=== PATIENT | male | born 1950 | race Caucasian/White ===

== ENCOUNTER 2017-10-19 10:47 | Outpatient (CLI) | payer OTHER | END 2017-10-19 12:00 | disposition home or self-care (01) | LOC: NUCLEAR 10:47 | DX: M05.69 Rheumatoid arthritis of multiple sites with involvement of other organs and systems (principal); M94.9 Disorder of cartilage, unspecified | CPT/HCPCS: 78315; A9503 ==

== ENCOUNTER 2019-05-10 09:47 | Outpatient (CLI) | payer OTHER | END 2019-05-10 09:50 | disposition home or self-care (01) | LOC: NUCLEAR 09:47 | DX: M81.0 Age-related osteoporosis without current pathological fracture (principal); M85.9 Disorder of bone density and structure, unspecified ==

== ENCOUNTER 2019-07-19 07:09 | Outpatient (CLI) | payer OTHER | END 2019-07-19 07:16 | disposition home or self-care (01) | LOC: LAB 07:09 | DX: E55.9 Vitamin D deficiency, unspecified (principal); M85.88 Other specified disorders of bone density and structure, other site; E88.89 Other specified metabolic disorders; E56.1 Deficiency of vitamin K; M81.8 Other osteoporosis without current pathological fracture ==

== ENCOUNTER → 2020-02-04 08:03 | Outpatient (CLI) | payer OTHER | END | disposition home or self-care (01) | LOC: LAB 08:03 | DX: Z20.828 Contact with and (suspected) exposure to other viral communicable diseases (principal); R05 Cough; R06.02 Shortness of breath; R50.9 Fever, unspecified ==

== ENCOUNTER 2021-05-26 06:11 | Outpatient (CLI) | payer OTHER | END 2021-05-26 06:12 | disposition home or self-care (01) | LOC: LAB 06:11 | PROVIDERS: ATTEND Orthopaedic Surgery | DX: E21.2 Other hyperparathyroidism (principal); E55.9 Vitamin D deficiency, unspecified; M85.88 Other specified disorders of bone density and structure, other site; E88.89 Other specified metabolic disorders; M81.8 Other osteoporosis without current pathological fracture; E56.1 Deficiency of vitamin K ==

== ENCOUNTER 2021-05-27 13:52 | Outpatient (CLI) | payer OTHER | END 2021-05-27 14:00 | disposition home or self-care (01) | LOC: NUCLEAR 13:52 | PROVIDERS: ATTEND Orthopaedic Surgery | DX: M81.0 Age-related osteoporosis without current pathological fracture (principal) ==

== ENCOUNTER → 2023-04-03 06:17 | Outpatient (CLI) | payer OTHER | END | disposition home or self-care (01) | LOC: LAB 06:17 | PROVIDERS: ATTEND Internal Medicine Pulmonary Disease | DX: R05.8 Other specified cough (principal); R06.02 Shortness of breath; R50.9 Fever, unspecified; Z20.822 Contact with and (suspected) exposure to COVID-19 ==

== ENCOUNTER → 2023-05-15 08:30 | Outpatient (CLI) | payer OTHER | END | disposition home or self-care (01) | LOC: LAB 08:30 | PROVIDERS: ATTEND Orthopaedic Surgery | DX: M85.9 Disorder of bone density and structure, unspecified (principal); E83.42 Hypomagnesemia; E56.1 Deficiency of vitamin K ==

== ENCOUNTER 2023-05-29 13:40 | Outpatient (CLI) | payer OTHER | END 2023-05-29 13:42 | disposition home or self-care (01) | LOC: NUCLEAR 13:40 | PROVIDERS: ATTEND Orthopaedic Surgery | DX: M81.0 Age-related osteoporosis without current pathological fracture (principal) ==

== ENCOUNTER 2024-05-23 06:45 | Outpatient (CLI) | payer OTHER | END 2024-05-23 06:54 | disposition home or self-care (01) | LOC: LAB 06:45 | PROVIDERS: ATTEND Orthopaedic Surgery | DX: E56.1 Deficiency of vitamin K (principal) ==

== ENCOUNTER 2025-09-01 09:51 | Outpatient (CLI) | payer OTHER | END 2025-09-01 09:53 | disposition home or self-care (01) | LOC: RAD 09:51 | DX: R06.02 Shortness of breath (principal) ==